=== PATIENT | female | born 1945 | race Caucasian/White ===

== ENCOUNTER → 2016-06-14 | Outpatient (REF) | payer MEDICARE ==
[~2016-06-14] MED LIST: BUPR150T6 PO; CTLP20T PO; GLIP5TAB13 PO; HCTZ12.5T PO; LEVO75TA4 PO; METF500T4 PO; NFLOSA25TA PO; NITR100C3 PO; NORE5TAB3 PO; POTA99TA16 PO; SMV20T PO
== END ==
LOC: LAB 16:51
PROVIDERS: ATTEND Internal Medicine
DX: Z11.59 Encounter for screening for other viral diseases (principal)
CPT/HCPCS: 86803

== ENCOUNTER → 2016-07-29 | Outpatient (CLI) | payer MEDICARE, OTHER ==
[2016-07-29 15:31] VITALS: BP 138/82
== END ==
LOC: MHUC 13:18
PROVIDERS: ATTEND Physician Assistant
DX: R05 Cough (principal)
CPT/HCPCS: 99213